=== PATIENT | male | born 1955 | race Two or more races ===

== ENCOUNTER 2024-07-01 16:12 | Inpatient (IN) | payer OTHER ==
[~2024-07-01] VITALS: Ht 152.4 cm; Wt 81.2 kg
[2024-07-01] MEDS ORDERED: IBU800 MG (17:33)
[2024-07-01] MEDS ORDERED: AMOX1TAB5 PO (17:34)
[2024-07-01] MEDS ORDERED: 0.9 % SODIUM CHLORIDE 1,000 ML IV STA (18:32)
[2024-07-01 19:02] LABS: BASO % 0.4 % (0.1-1.2); EOS # 0.22 (0.04-0.54); EOS % 1.9 % (0.7-7.0); HEMATOCRIT 39.9 % (40.1-51.0); HEMOGLOBIN 13.8 g/dL (13.7-17.5); LYMPH # 1.17 (1.18-3.74); LYMPH % 10.3 % (19.3-53.1); MEAN CORPUSCULAR HEMOGLOBIN 31.2 pg (25.6-32.2); MONO % 7.1 % (4.7-12.5); NEUT # 9.07 (1.56-6.13); PLATELET COUNT 173 K/uL (163-369); RED BLOOD COUNT 4.43 M/uL (4.63-6.08); RED CELL DISTRIBUTION WIDTH 11.8 % (11.6-14.4)
[2024-07-01 19:35] LABS: ALBUMIN 3.7 gm/dL (3.4-5.0); BILIRUBIN TOTAL 0.66 mg/dL (0.3-1.2); CALCIUM 8.8 mg/dL (8.5-10.1); CREATININE SERUM 1.03 mg/dL (0.70-1.30); GFR 71.39; GLOBULINA 4.4 G/DL (2.4-3.5); POTASSIUM 3.97 mEq/L (3.5-5.1); TOTAL PROTEIN 8.1 gm/dL (6.4-8.2)
[2024-07-01] MEDS ORDERED: CIPROFLOXACIN IN 5 % DEXTROSE 400 MG/200 ML PIGGYBAG IV STA (21:40)
[2024-07-01] MEDS ORDERED: FAMOTIDINE/PF 20 MG in 0.9 % SODIUM CHLORIDE 8 ML IV PUSH SCH (21:45)
[2024-07-01] MEDS ORDERED: KETOROLAC TROMETHAMINE 30 MG VIAL IV PRN (21:45)
[2024-07-01] MEDS ORDERED: DEXTROSE 5 % AND 0.9 % NACL 1,000 ML IV SCH (21:45)
[2024-07-01 22:19] VITALS: BP 136/73
[2024-07-01] MEDS ORDERED: FAMOTIDINE/PF 20 MG/2 ML VIAL ONE (22:27)
[2024-07-01] MEDS ORDERED: CIPROFLOXACIN IN 5 % DEXTROSE 400 MG/200 ML PIGGYBAG IV ONE (22:27)
[2024-07-01 23:11] LABS: BASO % 0.3 % (0.1-1.2); EOS # 0.22 (0.04-0.54); EOS % 1.8 % (0.7-7.0); HEMATOCRIT 40.8 % (40.1-51.0); HEMOGLOBIN 13.9 g/dL (13.7-17.5); MEAN CORPUSCULAR HEMOGLOBIN 30.8 pg (25.6-32.2); MONO # 1.06 (0.24-0.82); MONO % 8.7 % (4.7-12.5); NEUT # 9.73 (1.56-6.13); PLATELET COUNT 163 K/uL (163-369); RED BLOOD COUNT 4.51 M/uL (4.63-6.08); RED CELL DISTRIBUTION WIDTH 11.9 % (11.6-14.4)
[2024-07-01 23:37] VITALS: BP 145/79; O2SAT 96
[2024-07-01 23:43] LABS: INR 1.1; PARTIAL THROMBOPLASTIN TIME 29.2 SECONDS (22.0-34.0); PROTHROMBIN TIME 11.9 SECONDS (9.0-11.5)
[2024-07-02] MEDS ORDERED: METRONIDAZOLE/SODIUM CHLORIDE 100 ML IV SCH (01:00)
[2024-07-02 01:38] VITALS: BP 95/59
[2024-07-02] MEDS ORDERED: CIPROFLOXACIN IN 5 % DEXTROSE 400 MG/200 ML PIGGYBAG IV SCH (09:00)
[2024-07-02 09:32] LABS: BASO % 0.3 % (0.1-1.2); HEMATOCRIT 35.4 % (40.1-51.0); HEMOGLOBIN 12.1 g/dL (13.7-17.5); LYMPH % 8.9 % (19.3-53.1); MEAN CORPUSCULAR HEMOGLOBIN 30.4 pg (25.6-32.2); MONO # 0.93 (0.24-0.82); MONO % 9.2 % (4.7-12.5); NEUT # 8.01 (1.56-6.13); NEUT % 79.3 % (34.0-71.1); PLATELET COUNT 152 K/uL (163-369); RED BLOOD COUNT 3.98 M/uL (4.63-6.08); RED CELL DISTRIBUTION WIDTH 11.9 % (11.6-14.4)
[2024-07-02 09:48] VITALS: BP 131/65; O2SAT 96
[2024-07-02 09:55] LABS: INR 1.12; PROTHROMBIN TIME 12.1 SECONDS (9.0-11.5)
[2024-07-02 18:54] VITALS: BP 153/76; O2SAT 96
[2024-07-03 01:21] VITALS: BP 130/66; O2SAT 97
[2024-07-03 07:02] LABS: BASO % 0.5 % (0.1-1.2); EOS # 0.19 (0.04-0.54); HEMATOCRIT 35.3 % (40.1-51.0); HEMOGLOBIN 11.9 g/dL (13.7-17.5); LYMPH # 0.92 (1.18-3.74); LYMPH % 9.9 % (19.3-53.1); MEAN CORPUSCULAR HEMOGLOBIN 30.5 pg (25.6-32.2); MONO # 0.86 (0.24-0.82); MONO % 9.3 % (4.7-12.5); NEUT # 7.23 (1.56-6.13); NEUT % 77.9 % (34.0-71.1); PLATELET COUNT 154 K/uL (163-369); RED CELL DISTRIBUTION WIDTH 11.9 % (11.6-14.4)
[2024-07-03] MEDS ORDERED: FAMOTIDINE/PF 20 MG/2 ML VIAL ONE (07:53)
[2024-07-03 08:01] LABS: ERYTHROCYTE SEDIMENTATION RATE 42 mm/hr (0-20)
[2024-07-03] MEDS ORDERED: KETOROLAC TROMETHAMINE 60 MG VIAL IM STA (08:14)
[2024-07-03 08:26] VITALS: BP 131/72; O2SAT 96
[2024-07-03] MEDS ORDERED: BENZONATATE 200 MG CAPSULE PO SCH (09:00)
[2024-07-03 17:27] VITALS: BP 135/58
[2024-07-03] MEDS ORDERED: MEROPENEM 500 MG/VIAL VIAL IV SCH (18:00)
[2024-07-03] MEDS ORDERED: ACETAMINOPHEN 500 MG GEL..CAP PO STA (22:23)
[2024-07-03] MEDS ORDERED: ACETAMINOPHEN 500 MG GEL..CAP PO PRN (22:30)
[2024-07-04 02:29] VITALS: BP 122/73; O2SAT 95
[2024-07-04 08:15] VITALS: BP 125/70
[2024-07-04 14:15] VITALS: BP 177/91
[2024-07-04] MEDS ORDERED: LACTOBACILLUS ACIDOPHILUS 1 CAP CAP PO SCH (17:00)
[2024-07-04 17:25] VITALS: BP 116/65
[2024-07-04] MEDS ORDERED: FAMOtidine 20 MG TABLET PO SCH (21:00)
[2024-07-05 01:39] VITALS: BP 93/46; O2SAT 96
[2024-07-05 05:56] LABS: CALCIUM 7.8 mg/dL (8.5-10.1); CREATININE SERUM 0.81 mg/dL (0.70-1.30); GFR 94.21; POTASSIUM 4.13 mEq/L (3.5-5.1)
[2024-07-05] MEDS ORDERED: DIPHENHYDRAMINE HCL 50 MG/ML VIAL 1ML IV STA (06:42)
[2024-07-05 06:52] LABS: BASO % 0.6 % (0.1-1.2); EOS # 0.35 (0.04-0.54); EOS % 3.9 % (0.7-7.0); HEMATOCRIT 33.7 % (40.1-51.0); LYMPH # 1.32 (1.18-3.74); LYMPH % 14.6 % (19.3-53.1); MEAN CORPUSCULAR HEMOGLOBIN 30.1 pg (25.6-32.2); MONO # 0.81 (0.24-0.82); NEUT # 6.49 (1.56-6.13); NEUT % 71.7 % (34.0-71.1); PLATELET COUNT 156 K/uL (163-369); RED BLOOD COUNT 3.66 M/uL (4.63-6.08); RED CELL DISTRIBUTION WIDTH 11.9 % (11.6-14.4)
[2024-07-05 07:42] LABS: ERYTHROCYTE SEDIMENTATION RATE 41 mm/hr (0-20)
[2024-07-05 08:28] VITALS: BP 115/65; O2SAT 97
[2024-07-05] MEDS ORDERED: VITAMIN B COMPLEX 1 EACH PO SCH (09:14)
[2024-07-05 18:22] VITALS: BP 123/55; O2SAT 95
[2024-07-06 01:28] VITALS: BP 119/54; O2SAT 98
[2024-07-06 09:34] VITALS: BP 153/69; O2SAT 98
[2024-07-06] MEDS ORDERED: fentaNYL CITRATE 50 MCG/ML AMPUL IV PUSH ONE (16:15)
[2024-07-06] MEDS ORDERED: MIDAZOLAM HCL 2 MG/2 ML VIAL IV PUSH ONE (16:15)
[2024-07-06 17:27] VITALS: BP 143/66
[2024-07-07 01:23] VITALS: BP 133/72
[2024-07-07 08:29] VITALS: BP 129/59; O2SAT 96
[2024-07-07 18:31] VITALS: BP 156/62
[2024-07-07] MEDS ORDERED: BUTALB/ACETAMINOPHEN/CAFFEINE 1 TAB TABLET PO PRN (20:15)
[2024-07-08 00:50] VITALS: BP 134/64
[2024-07-08 09:01] VITALS: BP 148/75; O2SAT 97
[2024-07-08 16:00] VITALS: BP 130/66; BP 160/64; O2SAT 97; O2SAT 98
[2024-07-09 00:57] VITALS: BP 149/69
[2024-07-09 08:50] VITALS: BP 145/80; O2SAT 99
[2024-07-09] MEDS ORDERED: GLYCERIN 2.1 GM SUPP.RECT RECTAL NR (10:30)
[2024-07-09] MEDS ORDERED: LACTULOSE 20 G/30 ML BLIST.PACK PO NR (10:30)
[2024-07-09 16:00] VITALS: BP 155/69; O2SAT 97
[2024-07-10 01:22] VITALS: BP 160/84
[2024-07-10 06:51] LABS: BASO % 0.8 % (0.1-1.2); EOS % 4.5 % (0.7-7.0); HEMATOCRIT 34.3 % (40.1-51.0); HEMOGLOBIN 11.3 g/dL (13.7-17.5); LYMPH # 1.28 (1.18-3.74); LYMPH % 19.3 % (19.3-53.1); MEAN CORPUSCULAR HEMOGLOBIN 30.2 pg (25.6-32.2); MONO # 0.63 (0.24-0.82); MONO % 9.5 % (4.7-12.5); NEUT # 4.33 (1.56-6.13); NEUT % 65.3 % (34.0-71.1); PLATELET COUNT 193 K/uL (163-369); RED BLOOD COUNT 3.74 M/uL (4.63-6.08); RED CELL DISTRIBUTION WIDTH 12.2 % (11.6-14.4)
[2024-07-10 07:12] LABS: ERYTHROCYTE SEDIMENTATION RATE 38 mm/hr (0-20)
[2024-07-10 08:03] LABS: ALBUMIN 2.8 gm/dL (3.4-5.0); BILIRUBIN TOTAL 0.42 mg/dL (0.3-1.2); CREATININE SERUM 0.77 mg/dL (0.70-1.30); GFR 99.88; POTASSIUM 4.15 mEq/L (3.5-5.1); TOTAL PROTEIN 5.8 gm/dL (6.4-8.2)
[2024-07-10 08:05] LABS: C-REACTIVE PROTEIN 0.81 MG/DL (0.00-0.29)
[2024-07-10] MEDS ORDERED: DOCUSATE SODIUM 100MG CAP PO SCH (09:00)
[2024-07-10 09:07] VITALS: BP 156/70; O2SAT 99
[2024-07-10 17:13] VITALS: BP 154/74; O2SAT 94
[2024-07-11 01:05] VITALS: BP 144/68; O2SAT 98
[2024-07-11 09:07] VITALS: BP 137/74; O2SAT 95
[2024-07-11 17:37] VITALS: BP 129/71
[2024-07-12 02:52] VITALS: BP 137/66; O2SAT 95
[2024-07-12 08:00] VITALS: BP 137/81
[2024-07-12 18:56] VITALS: BP 159/86
[2024-07-13 03:33] VITALS: BP 111/66
[2024-07-13] MEDS ORDERED: LACTULOSE 20 G/30 ML BLIST.PACK PO STA (08:03)
[2024-07-13 08:39] VITALS: BP 119/69
[2024-07-13 18:45] VITALS: BP 150/69; O2SAT 98
[2024-07-13] MEDS ORDERED: HIBICLENS118 ML TOP (18:54)
[2024-07-13] MEDS ORDERED: MUPIROCIN15 GM TOP (18:56)
[2024-07-13] MEDS ORDERED: BUTALB-ACETAMI1 EAC2 PO (18:57)
[2024-07-13] MEDS ORDERED: COLACE100 MG PO (18:58)
[2024-07-13] MEDS ORDERED: B Complex PO (18:59)
[2024-07-13] MEDS ORDERED: INTESTINEX680 M1 PO (18:59)
== END 2024-07-13 19:10 | disposition home or self-care (01) | DRG 603 ==
LOC: ER 16:25 → MEDI 22:20 → MEDJ 07-02 13:47
PROVIDERS: General Practice; ADMIT Internal Medicine Hematology & Oncology; ATTEND Internal Medicine Hematology & Oncology
PROC: BW21YZZ Computerized Tomography (CT Scan) of Abdomen and Pelvis using Other Contrast (ICD-10-PCS; principal; 2024-07-01)
PROC: 0W9J3ZZ Drainage of Pelvic Cavity, Percutaneous Approach (ICD-10-PCS; 2024-07-06)
DX: L03.315 Cellulitis of perineum (principal); K61.0 Anal abscess; B96.29 Other Escherichia coli [E. coli] as the cause of diseases classified elsewhere